=== PATIENT | female | born 1960 ===

== ENCOUNTER 2019-09-21 21:14 | Emergency (ER) | payer BC ==
[2019-09-21] MEDS ORDERED: Proparacaine 0.5% Ophth Soln 15 ML Bottle EYELF ONE (21:30)
[2019-09-21] MEDS ORDERED: Fluorescein 1 MG Ophth Strip EYELF ONE (21:31)
--- NOTE | 2019-09-21 21:31 | EDM.PDOC ---
ED HPI GENERAL MEDICAL PROBLEM - General Chief Complaint: Eye Problems Stated Complaint: LEFT EYE PAIN Time Seen by Provider: 09/21/19 21:28 Source of Information: Reports: Patient, RN Notes Reviewed History Limitations: Reports: No Limitations - History of Present Illness INITIAL COMMENTS - FREE TEXT/NARRATIVE: Patient is a 58-year-old female who presents to the ED for left eye pain. Patient notes that around 8:30 PM, she was getting ready for bed, and was rubbing her eyes, when she felt like something got into her left eye, and she immediately started having pain, burning, and eye tearing. Patient still feels as if there is something in her eye. Patient notes that she does wear glasses on a regular basis, and states that her vision does not seem to be more blurry t galvez it normally is on a regular basis. She denies any other sick-like symptoms, fever/chills, headache, sinus pressure, cough/shortness of breath. Left Eye Pain Score (Numeric/FACES): 10 - Related Data Allergies Allergy/AdvReac Type Severity Reaction Status Date / Time zolpidem [Zolpidem] AdvReac Severe Headache Verified 09/21/19 21:25 Home Meds: Home Meds Meloxicam 15 mg PO DAILY 09/12/15 [History] Ascorbic Acid [Vitamin C with Melva Hips] 500 mg PO DAILY 09/23/15 [History] Garlic 1,000 mg PO DAILY 09/23/15 [History] Ubidecarenone [Co Q-10] 200 mg PO BID 09/23/15 [History] Verapamil HCl [Verelan Pm] 200 mg PO DAILY 09/23/15 [History] guaiFENesin [Mucinex] 600 mg PO Q12HR PRN 09/23/15 [History] Ketorolac [Acular 0.5% Ophth Soln] 1 drop OP Q6H PRN #1 bottle 09/21/19 [Rx] Mv-Min/Iron/Folic/Calcium/Vitk [Women's Multivitamin Tablet] 1 tab PO DAILY 09/21/19 [History] Rosuvastatin [Crestor] 20 mg PO DAILY 09/21/19 [History] metFORMIN [Glucophage] 750 mg PO DAILY 09/21/19 [History] Past Medical History Cardiovascular History: Reports: High Cholesterol, Hypertension Musculoskeletal History: Reports: Fibromyalgia, Other (See Below) Other Musculoskeletal History: arhtritis - Past Surgical History Musculoskeletal Surgical History: Reports: Arthroscopic Knee ED ROS GENERAL - Review of Systems Review Of Systems: Comprehensive ROS is negative, except as noted in HPI. ED EXAM GENERAL W FULL EYE - Physical Exam Exam: See Below Exam Limited By: No Limitations General Appearance: Alert, WD/WN, No Apparent Distress Eye Exam: Right Eye: Normal Inspection, Left Eye: Conjunctival Injection, Bilateral Eye: EOMI, PERRL Visual Acuity (R) 20/: 50 Visual Acuity (L) 20/: 100 With Correction: No Eyelids: Bilateral: Normal Appearance Conjunctiva & Sclera: Right: Normal Appearance Cornea Exam: Right: Normal Appearance, Left: Corneal Abrasion (to lower right qudrant, pin point type area of fluorescein uptake), Examined with Flourescein Extraocular Movements: Bilateral: Intact Pupils: Normal Accommodation Pupillary Size: Bilateral: 3 mm Pupillary Reaction: Bilateral: Brisk Respiratory/Chest: No Respiratory Distress, Lungs Clear, Normal Breath Sounds, No Accessory Muscle Use, Chest Non-Tender Cardiovascular: Normal Peripheral Pulses, Regular Rate, Rhythm, No Murmur Neurological: Alert, Oriented, CN II-XII Intact (grossly), Normal Cognition, No Motor/Sensory Deficits Psychiatric: Normal Affect, Normal Mood Skin Exam: Warm, Dry, Intact, Normal Color, No Rash Course - Vital Signs Last Recorded V/S: Last Vital Signs Temp 97.8 F 09/21/19 21:38 Pulse 72 09/21/19 21:38 Resp 20 09/21/19 21:38 BP 153/80 H 09/21/19 21:38 Pulse Ox 95 09/21/19 21:38 - Orders/Labs/Meds Meds: Medications Discontinued Medications Generic Name Dose Route Start Last Admin Trade Name Freq PRN Reason Stop Dose Admin Erythromycin 1 gm 09/21/19 21:54 Erythromycin 0.5% Ophth Oint EYELF 09/21/19 21:55 ONETIME ONE Fluorescein Sodium 1 mg 09/21/19 21:31 09/21/19 21:44 Ful-Ning EYELF 09/21/19 21:32 1 mg ONETIME ONE Administration Proparacaine HCl 2 ml 09/21/19 21:30 09/21/19 21:40 Proparacaine 0.5% Ophth Soln EYELF 09/21/19 21:31 2 drop ONETIME ONE Administration - Re-Assessments/Exams Free Text/Narrative Re-Assessment/Exam: 09/21/19 22:00 Patient presents to the ED for the evaluation of her left eye foreign body sensation. Patient's eye was examined with fluorescein, there was a corneal abrasion noted to the lower outer right quadrant of the eye, is a pinpoint area of uptake of fluorescein. Sent home with erythromycin and a prescription for ketorolac eyedrops if she should choose to fill it. Departure - Departure Time of Disposition: 21:55 Disposition: Home, Self-Care 01 Condition: Good Clinical Impression: Corneal abrasion, left Qualifiers: Encounter type: initial encounter Qualified Code(s): S05.02XA - Injury of conjunctiva and corneal abrasion without foreign body, left eye, initial encounter - Discharge Information *PRESCRIPTION DRUG MONITORING PROGRAM REVIEWED*: No *COPY OF PRESCRIPTION DRUG MONITORING REPORT IN PATIENT VALENTINE: No Prescriptions: Ketorolac [Acular 0.5% Ophth Soln] 1 drop OP Q6H PRN #1 bottle PRN Reason: Pain Instructions: Corneal Abrasion, Vdoy-go-Llce Referrals: Zeinab Edward, [employer] [Primary Care Provider] - Forms: ED Department Discharge Additional Instructions: You have been evaluated in the ED today for a foreign body sensation in your eye. You were identified to have a corneal abrasion to the left eye. Please use the erythromycin ointment, 1 cm ribbon to the lower affected eyelid margin 4 times daily for the next 3-5 days. You were given some pain drops for your eye, ketorolac, please instill 2 drops to the affected eye every 6 hours at least for the next 24 hours. You may use this up to 2-3 days if needed. Recommend that you follow up with optometry within the next day or 2 for a more thorough evaluation and to make sure that everything is healing appropriately. You will have to call around and schedule yourself an appointment with the next available provider if you do not already have a current eye doctor. Please return to the ED if your symptoms should change or worsen. Sepsis Event Note (ED) - Focused Exam Vital Signs: Vital Signs Temp Pulse Resp BP Pulse Ox 09/21/19 21:38 97.8 F 72 20 153/80 H 95
[2019-09-21 21:40] VITALS: BP 153/80; PULSE 72
[2019-09-21] MEDS ORDERED: Erythromycin Base 0.5% Ophth Oint 1 GM Tube EYELF ONE (21:54)
== END 2019-09-21 22:03 | disposition home or self-care (01) ==
LOC: JD.ED 21:14
DX: S05.02XA Injury of conjunctiva and corneal abrasion without foreign body, left eye, initial encounter (principal); I10 Essential (primary) hypertension; E78.00 Pure hypercholesterolemia, unspecified; M19.90 Unspecified osteoarthritis, unspecified site; Z88.8 Allergy status to other drugs, medicaments and biological substances; Z79.899 Other long term (current) drug therapy; X58.XXXA Exposure to other specified factors, initial encounter
CPT/HCPCS: 99283; A9270

== ENCOUNTER 2021-07-27 08:47 | Day surgery (SDC) | payer BC ==
[~2021-07-27 08:47] MED LIST: Lactated Ringers 1,000 ML IV SCH; Lidocaine 1%/Sod Bicarbonate in NS 8.4% 1 ML Syringe IDERM PRN; Sodium Chloride 0.9% 10 ML Syringe FLUSH PRN; Sodium Chloride 0.9% 10 ML Syringe FLUSH SCH
[2021-07-27] MEDS ORDERED: Propofol 200 MG/20 ML SDV ONE ×3 (09:53→10:53)
[2021-07-27] MEDS ORDERED: Lidocaine 1% 4 ML ONE (09:53)
[2021-07-27] MEDS ORDERED: Lactated Ringers 1,000 ML ONE (11:07)
[2021-07-27 11:48] VITALS: BP 145/73; PULSE 68
[2021-07-31] MEDS ORDERED: Sodium Chloride 0.9% 10 ML Syringe FLUSH SCH (00:01)
[2021-07-31] MEDS ORDERED: Lactated Ringers 1,000 ML IV SCH (00:01)
[2021-07-31] MEDS ORDERED: Sodium Chloride 0.9% 10 ML Syringe FLUSH PRN (00:01)
[2021-07-31] MEDS ORDERED: Lidocaine 1%/Sod Bicarbonate in NS 8.4% 1 ML Syringe IDERM PRN (00:01)
== END 2021-07-27 11:43 ==
LOC: JD.SDS 08:47
PROVIDERS: ATTEND Surgery
DX: K57.30 Diverticulosis of large intestine without perforation or abscess without bleeding (principal); K64.8 Other hemorrhoids; I10 Essential (primary) hypertension; E78.00 Pure hypercholesterolemia, unspecified; E11.9 Type 2 diabetes mellitus without complications; Z88.8 Allergy status to other drugs, medicaments and biological substances; Z98.890 Other specified postprocedural states; Z79.84 Long term (current) use of oral hypoglycemic drugs; Z79.899 Other long term (current) drug therapy; Z87.19 Personal history of other diseases of the digestive system
CPT/HCPCS: 45378; J2704; J7120

== ENCOUNTER 2022-12-12 07:48 | Day surgery (SDC) | payer BC ==
[~2022-12-12 07:48] MED LIST changes: +Dexmedetomidine 200 MCG/2 ML SDV ONE; +EPINEPHrine 1 MG/ML SDV ONE; -Lidocaine 1%/Sod Bicarbonate in NS 8.4% 1 ML Syringe IDERM PRN; +Morphine 8 MG, EPINEPHrine 0.3 MG, Cefuroxime 750 MG, Ketorolac 30 MG, Sodium Chloride ... PRN; +Ropivacaine 0.5% 5 MG/ML 30 ML SDV ONE
[2022-12-12] MEDS ORDERED: fentaNYL 100 MCG/2 ML SDV ONE (08:35)
[2022-12-12] MEDS ORDERED: Lidocaine 1% 5 ML VIAL ONE (08:35)
[2022-12-12] MEDS ORDERED: Midazolam 1 MG/ML 2 ML SDV ONE (08:35)
[2022-12-12] MEDS ORDERED: Propofol 200 MG/20 ML SDV ONE ×3 (08:35→11:33)
[2022-12-12] MEDS ORDERED: ceFAZolin 2 GM Vial ONE (08:38)
[2022-12-12] MEDS ORDERED: Ketorolac 15 MG/ML SDV ONE (08:56)
[2022-12-12] MEDS ORDERED: Tranexamic Acid 1,000 MG/10 ML Vial ONE (08:57)
[2022-12-12] MEDS ORDERED: Vancomycin 1 GM SDV ONE (08:57)
[2022-12-12] MEDS ORDERED: Acetaminophen 325 MG Tab PO ONE (09:00)
[2022-12-12] MEDS ORDERED: Pregabalin 25 MG Cap PO ONE (09:00)
[2022-12-12] MEDS ORDERED: oxyCODONE ER 10 MG TAB.ER PO ONE (09:00)
[2022-12-12] MEDS ORDERED: fentaNYL 100 MCG/2 ML SDV IVPUSH PRN (09:47)
[2022-12-12] MEDS ORDERED: HYDROmorphone 0.5 MG/0.5 ML Syringe IVPUSH PRN (09:47)
[2022-12-12] MEDS ORDERED: Ondansetron 4 MG/2 ML SDV IVPUSH PRN (09:47)
[2022-12-12] MEDS ORDERED: Dexamethasone 4 MG/ML 5 ML MDV ONE (10:33)
[2022-12-12] MEDS ORDERED: Lactated Ringers 1,000 ML ONE (11:43)
[2022-12-12] MEDS ORDERED: Ondansetron 4 MG/2 ML SDV ONE (11:52)
[2022-12-12] MEDS ORDERED: Lactated Ringers 1,000 ML IV ONE (12:00)
[2022-12-12] MEDS ORDERED: oxyCODONE 5 MG Tab PO PRN (14:41)
[2022-12-12 17:17] VITALS: BP 137/75; PULSE 79
== END 2022-12-12 16:25 | disposition home or self-care (01) ==
LOC: JD.SDS 07:48
PROVIDERS: ATTEND Orthopaedic Surgery
DX: M17.12 Unilateral primary osteoarthritis, left knee (principal); G89.29 Other chronic pain; I10 Essential (primary) hypertension; E11.9 Type 2 diabetes mellitus without complications; E55.9 Vitamin D deficiency, unspecified; E78.00 Pure hypercholesterolemia, unspecified; G43.909 Migraine, unspecified, not intractable, without status migrainosus; E66.9 Obesity, unspecified; Z79.84 Long term (current) use of oral hypoglycemic drugs; Z79.899 Other long term (current) drug therapy; Z79.1 Long term (current) use of non-steroidal anti-inflammatories (NSAID); Z88.8 Allergy status to other drugs, medicaments and biological substances; Z68.38 Body mass index [BMI] 38.0-38.9, adult
CPT/HCPCS: 0055T; 27447; 64447; 73560; 97110; 97116; 97161; A9270; C1713; C1776; J0171; J0690; J0697; J1100; J1885; J2250; J2270; J2405; J2704; J2795; J3010; J3370; J7030; J7120; 01402; J3490